=== PATIENT | female | born 1970 | race Caucasian/White ===

== ENCOUNTER 2025-06-01 19:34 | Emergency (ER) | payer OTHER, SELFPAY ==
--- NOTE | ~2025-06-01 | XR_ITS ---
CLINICAL HISTORY: CP 2 view chest x-ray Comparison: None provided Findings: The lungs are clear. Normal size heart. No acute fracture. IMPRESSION: 1. No acute findings. This document has been electronically signed by: Misael Rollins MD on 06/01/2025 20:16:30
--- NOTE | 2025-06-01 19:38 | ED_ITS ---
HPI - General Adult General Chief complaint: Chest Pain Stated complaint: chest pain/left tingly Time Seen by Provider: 06/01/25 21:26 Source: patient Mode of arrival: ambulatory Limitations: no limitations History of Present Illness ED Provider: José Antonio HUDSON HPI narrative: The patient is a 55-year-old female presenting to the ED for evaluation of 2-3 days of facial paresthesias which began at the top of her forehead, described as a poking tingling sensation, which then also developed in her bilateral orbits, cheeks, lips, and the left side of her chin. The patient reports 6 days ago she began taking Augmentin for a UTI diagnosed by urinalysis through her PCP office. The patient reports urinary symptoms are improving. The patient denies associated headache, facial droop, lip or tongue swelling, dysphagia, stridor, urticaria, fever/chills, nausea, vomiting, abdominal pain, diarrhea, dizziness, or other focal neurological deficit. The patient reports today she experienced some intermittent episodes of ?discomfort? in her chest which occasionally feels similar to her facial paresthesias, denies overt chest pain. The patient denies associated pleurisy, hemoptysis, cough, shortness of breath, near-syncope, or syncope. The patient denies any recent sick contacts or trauma. The patient reports multiple medication allergies, including Levaquin, patient reports she was concerned she was experiencing another allergy to Augmentin. The patient also reports she has a history of anxiety, and has recently experienced increased stressors. Related Data Allergies Allergy/AdvReac Type Severity Reaction Status Date / Time aspirin Allergy Unknown Verified 06/01/25 19:44 diazepam (From Valium) Allergy Rash Verified 06/01/25 19:44 levofloxacin (From Levaquin) Allergy Rash Verified 06/01/25 19:44 morphine Allergy Unknown Verified 06/01/25 19:44 povidone-iodine (From Allergy Rash Verified 06/01/25 19:44 Betadine) pregabalin (From Lyrica) Allergy Rash Verified 06/01/25 19:44 Review of Systems 2 Review of Systems: Yes all other systems are reviewed and are negative PMFSH Social History Social History Smoked in Last 30 Days: No Use of substances other than those prescribed or required for medical reasons: No Advance Directives: No Advance Directives Information Provided: No Do you have a plan to hurt others: No Plan Physical Exam ED Vital Signs: Vital Signs - 24 hr 06/01/25 19:43 06/01/25 21:33 Temperature 97.5 F Pulse Rate 102 H 98 Respiratory Rate 16 12 Blood Pressure 144/88 H 137/81 Pulse Oximetry 97 97 Oxygen Delivery Method Room Air Room Air BMI result Body Mass Index 37.4 CONSTITUTIONAL: The patient appears non-toxic, well nourished and in no acute distress. Vital signs as documented. HEAD: Atraumatic, normocephalic. EYES: EOMs intact, pupils equal, round, and reactive to light, conjunctiva clear, no exudate. ENT: Nares patent, no discharge. Airway patent, no audible stridor, visible mucosa is pink and moist without noted lesions. NECK: Trachea is midline, no obvious masses or gross abnormalities. CHEST: Symmetric movement, normal appearance. LUNGS: LS present and CTAB, no w/r/r. Non-labored work of breathing. CARDIAC: Regular Rhythm, S1/S2 appreciated, no murmurs, rubs or gallops. ABDOMEN: Abdomen soft and non-tender x4 quadrants, no palpable masses or organomegaly. : Deferred. EXTREMITIES: Normal tone, moves all extremities spontaneously without reported pain. No obvious acute injury or deformity noted. NEURO: Alert and oriented x3, CN II-XII intact. Cerebellar Functioning intact. No sensory or motor deficits. Strength 5/5 x4. Speech clear and appropriate. Ambulates with a steady gait. PSYCH: normal affect, appropriate eye contact, fluid speech, with appropriate response to questioning. No reported suicidality or homicidality. SKIN: Warm, dry, color appropriate, normal turgor. No rashes noted. Course Course Course Narrative: This is an RME: Additional HPI, ROS, PE not included below will be deferred to primary provider. RME assessment and note performed by: Loraine Palomo PA-C This is a [id number]-female, with a hx of asthma, on Zepbound for weight loss, who presents to the ER with a complaint of facial tingling x 2 days. She states initially it started on the top of her head, has since progressed to the left side of her face and right side of her face. Also endorsing intermittent chest pain. Reports that she has no active CP right now. On Augmentin for UTI. No recent surgeries, travels, surgeries, or hospitalizations. Neuros intact Plan: Labs, UA, EKG, chest x-ray, further ER evaluation needed. Medical Decision Making Medical Decision Making [facility] Narrative: 9:53 PM 06/01/2025 (Celso HUDSON): The patient is a 55-year-old female presenting to the ED for evaluation of 2-3 days of facial paresthesias which began at the top of her forehead, described as a poking tingling sensation, which then also developed in her bilateral orbits, cheeks, lips, and the left side of her chin. The patient reports 6 days ago she began taking Augmentin for a UTI diagnosed by urinalysis through her PCP office. The patient reports urinary symptoms are improving. The patient denies associated headache, facial droop, lip or tongue swelling, dysphagia, stridor, urticaria, fever/chills, nausea, vomiting, abdominal pain, diarrhea, dizziness, or other focal neurological deficit. The patient reports today she experienced some intermittent episodes of ?discomfort? in her chest which occasionally feels similar to her facial paresthesias, denies overt chest pain. The patient denies associated pleurisy, hemoptysis, cough, shortness of breath, near-syncope, or syncope. The patient denies any recent sick contacts or trauma. The patient reports multiple medication allergies, including Levaquin, patient reports she was concerned she was experiencing another allergy to Augmentin. The patient also reports she has a history of anxiety, and has recently experienced increased stressors. In the ED the patient is well-appearing, in no acute distress, neuro exam is benign, no unilateral facial numbness is noted during neuro exam. The patient's laboratory evaluation demonstrates no leukocytosis, anemia, electrolyte abnormality, or ARIEL. The patient's LFTs are unremarkable, troponin is negative, EKG is nonischemic. Chest x-ray shows no acute cardiopulmonary process. The patient has no evidence of acute process requiring admission or observation, patient will be discharged with instructions to finish Augmentin, monitor for worsening symptoms, and follow up with PCP for re- evaluation. Both patient and patient's state feeling reassured, and a comfortable with plan for discharge with outpatient follow up. Admission/Observation Consideration of admission/observation: Escalation of care including admission/observation considered Lab Data [facility] Lab Attestation statement: I reviewed the patient's lab results. 06/01/25 19:54 06/01/25 19:54 Labs: Lab Results 06/01/25 Range/Units 19:54 WBC 8.0 (4.8-10.8) X10*3/uL RBC 4.63 (4.20-5.50) X10*6/uL Hgb 14.6 (12.0-16.0) g/dl Hct 42.6 (37.0-47.0) % MCV 92.0 (80.0-98.0) fL MCH 31.5 (27.0-33.0) pg MCHC 34.3 (31.0-35.0) g/dl RDW 12.2 (11.0-16.0) % Plt Count 330 (160-400) X10*3/uL MPV 9.5 (9.4-12.3) fL Immature Gran % (Auto) 0.3 (0.0-0.4) % Neut % (Auto) 41.6 L (45-73) % Lymph % (Auto) 48.3 H (20-40) % [place] % (Auto) 8.0 (2-11) % Eos % (Auto) 1.3 (0-4) % Baso % (Auto) 0.5 (0-2) % Lymph # (Auto) 3.9 (1.2-4.9) X10*3/uL [place] # (Auto) 0.6 (0.1-1.2) X10*3/uL Eos # (Auto) 0.1 (0.0-0.4) X10*3/uL Baso # (Auto) 0.0 (0.0-0.2) X10*3/uL Abs Immat Gran (auto) 0.02 (0.00-0.03) X10*3/uL Absolute Neuts (auto) 3.3 (2.0-8.3) x10*3/uL Absolute Nucleated RBC 0.000 (0.0-0.012) X10*3/uL Nucleated RBC % (auto) 0.0 (0.0-0.2) /100WBC Sodium 144 (135-145) mmol/L Potassium 4.4 (3.3-5.1) mmol/L Chloride 108 (96-108) mmol/L Carbon Dioxide 26 (22-29) mmol/L Anion Gap 14 (12-20) BUN 21 H (9-16) mg/dL Creatinine 1.09 (0.5-1.4) mg/dL Estim Creat Clear Calc 60.9 Estimated GFR 53 Random Glucose 97 (60-115) mg/dL Calcium 9.4 (8.4-10.2) mg/dL Magnesium 2.1 (1.6-2.6) mg/dL Total Bilirubin 0.3 (0.0-1.0) mg/dL Direct Bilirubin 0.1 (0.0-0.5) mg/dL AST 24 (5-31) U/L ALT 38 H (0-31) U/L Alkaline Phosphatase 50 (39-117) U/L Troponin I High Sens < 2.7 (<3.5-17.0) ng/L Total Protein 7.2 (6.5-8.0) g/dL Albumin 4.5 (3.5-5.0) g/dL Independent Interpretation I performed an independent interpretation of an: EKG (EKG shows sinus rhythm with a rate of 97, no evidence of acute ischemia, no ST elevation, no ectopy. QTC 436. There are no old for comparison.) Radiology Impression Discussion of test interpretation with radiology: I have reviewed the radiologist's reading. Radiologist Impression: 2 view chest x-ray Comparison: None provided Findings: The lungs are clear. Normal size heart. No acute fracture. IMPRESSION: 1. No acute findings. This document has been electronically signed by: Misael Rollins MD on 06/01/2025 20:16:30 External Record Review External record reviewed: Outpatient record Discharge Plan Discharge Clinical Impression: Atypical chest pain, Facial paresthesia Patient Disposition: Home, Self-Care Additional Instructions: Thank you for choosing [facility]'s Emergency Department for your care today. The exact cause of your facial paresthesias and intermittent chest pain over the past few days is not entirely clear, however thankfully your laboratory evaluation, EKG, chest x-ray, and exam today are all reassuring. There is currently no evidence of an acute neurologic, cardiac, metabolic, infectious, pulmonary, or other dangerous cause for your symptoms. At this time there is no indication for admission to the hospital or continued ED observation, and it is safe to discharge you home. Your symptoms may be related to your current antibiotic regimen with Augmentin, however do not constitute a true anaphylactic/allergic reaction and does not require Benadryl, steroids, or epinephrine. Your symptoms could also be related to your Zepbound injections, or related to your self-reported increased stress levels. Please stay well hydrated and get plenty of rest. At this time it is recommended you finish your last day of Augmentin to complete treatment of your urinary tract infection. Please follow up with your primary care physician by calling Wednesday to schedule an appointment for re-evaluation, additional investigation into, and management of your symptoms, and continued preventative care. If you do not have a primary care physician, please call the [facility] at [phone] to establish a new primary care physician. While waiting to establish your new primary care physician, you can call our [facility] at [phone] for non-emergency needs. Please return to the emergency department if you develop a severe or sudden change in your symptoms, a fever over 100.4 that does not improve with Tylenol or Ibuprofen, recurrent vomiting, a severe headache, impaired movements/motor function of your face or extremities, or any other new or worsening symptoms or concerns. Referrals: Marie Friedman MD [Primary Care Provider, Internal Medicine] Clinical Impression: Facial paresthesia; Atypical chest pain Print Language: Iranian
[2025-06-01 19:43] VITALS: BP 144/88; PULSE 102; RESP 16; TEMP 36.4; O2SAT 97; BMI 37.4
--- NOTE | 2025-06-01 19:44 | ECG_ITS ---
Test Reason : CP Blood Pressure : */* mmHG Vent. Rate : 97 BPM Atrial Rate : 97 BPM P-R Int : 148 ms QRS Dur : 80 ms QT Int : 344 ms P-R-T Axes : 40 21 38 degrees QTcB Int : 436 ms Normal sinus rhythm Cannot rule out Anterior infarct , age undetermined Abnormal ECG No previous ECGs available Referred By: Loraine Palomo Electronically Signed By: Nikhil Carranza
[2025-06-01 19:58] LABS: MANUAL DIFF FLAG NO
[2025-06-01 20:00] LABS: Hematocrit 42.6 % (37.0-47.0); Hemoglobin 14.6 g/dl (12.0-16.0); Imm Gran Abs Auto 0.02 X10*3/uL (0.00-0.03); Imm Gran Pct Auto 0.3 % (0.0-0.4); Lymphocytes Absolute Auto 3.9 X10*3/uL (1.2-4.9); Mean Corpuscular HGB Conc 34.3 g/dl (31.0-35.0); Mean Corpuscular Hemoglobin 31.5 pg (27.0-33.0); Mean Corpuscular Volume 92.0 fL (80.0-98.0); NRBC Abs Auto 0.000 X10*3/uL (0.0-0.012); NRBC Pct Auto 0.0 /100WBC (0.0-0.2); Platelet Count 330 X10*3/uL (160-400); Red Blood Count 4.63 X10*6/uL (4.20-5.50); White Blood Count 8.0 X10*3/uL (4.8-10.8)
[2025-06-01 20:13] LABS: Alanine Aminotransferase 38 U/L (0-31); Albumin Level 4.5 g/dL (3.5-5.0); Alkaline Phosphatase 50 U/L (39-117); Anion Gap 14 (12-20); Aspartate Amino Transferase 24 U/L (5-31); Blood Urea Nitrogen 21 mg/dL (9-16); Calcium 9.4 mg/dL (8.4-10.2); Carbon Dioxide 26 mmol/L (22-29); Chloride 108 mmol/L (96-108); Creatinine Clr Calc Pharmacy 60.9; Estimated Glomerular Filt Rate 53; Magnesium 2.1 mg/dL (1.6-2.6); Potassium 4.4 mmol/L (3.3-5.1); Sodium 144 mmol/L (135-145); Total Protein 7.2 g/dL (6.5-8.0)
[2025-06-01 20:21] LABS: Troponin-I High Sensitivity < 2.7 ng/L (<3.5-17.0)
--- OUTSIDE RECORDS SUMMARY | 2025-06-01 21:06 | XMS_ITS | Clinical Summary ---
Author Organization [facility] Address [address] [place] [id number] Phone Care Team Providers Care Visiting Housekeeper Name Role Phone Marie Friedman MD Primary Care Provider Allergies Active Allergy Reactions Criticality Noted Date Comments Adhesive 09/28/2023 Aspirin 09/28/2023 Povidone-Iodine 09/28/2023 Levofloxacin 09/28/2023 Morphine 09/28/2023 Medications amoxicillin (AMOXIL) 250 MG capsule Take 250 mg by mouth 3 (three) times a day. Active albuterol 90 mcg/actuation inhaler Inhale 2 puffs into the lungs every 6 (six) hours as needed for wheezing. Active Active Problems Problem Noted Date Diagnosed Date Breast cyst 09/28/2023 Asthma 09/28/2023 Anxiety 09/28/2023 Social History Tobacco Use Types Packs/Day Years Used Date Smoking Tobacco: Never Assessed Education Answer Date Recorded Are you interested in more education? Not on vicenta e 09/28/2023 Are you concerned about learning? Not on file 09/28/2023 No 09/28/2023 No 09/28/2023 Digital Access Answer Date Recorded No 09/28/2023 No 09/28/2023 Reliable internet access at home? Not on file 09/28/2023 Device with a working camera? Not on file Comments Unknown Sex and Gender Information Value Date Recorded Sex Assigned at Not on file Legal Sex Female 10:59 AM EST Gender Identity Not on file Sexual Orientation Not on file Last Filed Vital Signs Vital Sign Reading Time Taken Comments Blood Pressure 134/87 09/28/2023 3:35 PM EST Pulse 97 09/28/2023 3:35 PM EST Temperature 36.3 C (97.4 F) 09/28/2023 3:35 PM EST Respiratory Rate 18 09/28/2023 3:35 PM EST Oxygen Saturation 97% 09/28/2023 3:35 PM EST Inhaled Oxygen Concentration - - Weight - - Height - - Body Mass Index - - Plan of Treatment Health Maintenance Due Date Last Done Comments LIPID PANEL 1972 DEPRESSION SCREENING 1984 SMOKING Hx and SMOKELESS TOBACCO SCREENING 1985 HEPATITIS C SCREENING 1990 HIV ONE-TIME SCREENING (18-65 YEARS) 1990 PNEUMOCOCCAL VACCINES (50+ years) (1 of 2 - PCV) 1991 PAP SMEAR 1993 MAMMOGRAM 2012 COLOGUARD 2017 COLONOSCOPY 2017 COLORECTAL CANCER SCREENING 2017 FIT TEST 2017 FOBT 2017 SIGMOIDOSCOPY 2017 VIRTUAL COLONOSCOPY 2017 RSV VACCINE (1 - Risk 50-74 years 1-dose series) 2022 ZOSTER VACCINES (1 of 2) 2022 INFLUENZA VACCINE (#1) 2025 09/01/2023, 2020 COVID-19 VACCINE ( season) 2025 06/24/2022, 07/01/2021, 11/24/2020, Additional history exists Adult Td,Tdap Booster 10/05/2032 10/05/2022 HEPATITIS A VACCINES Aged Out No long er eligible based on patient's age to complete this topic HIB VACCINES Aged Out No longer eligi ble based on patient's age to complete this topic MENINGOCOCCAL VACCINES (ACWY) Aged Out No longer eligible based on patient's age to complete this topic MENINGOCOCCAL VACCINES (B) Aged Out N o longer eligible based on patient's age to complete this topic Medical Devices Not on file [place] [address] [place] [address] [employer] Care Teams Visiting Housekeeper Relationship Specialty Start Date End Date Marie Friedman MD [address] [place] [id number] PCP - General Internal Medicine 09/28/23 Additional Source Comments The information contained in this document represents components of the legal health record. It is not the complete legal health record.[facility]
[2025-06-01 21:33] VITALS: BP 137/81; PULSE 98; RESP 12; O2SAT 97
[2025-06-01 22:10] VITALS: BP 123/77; PULSE 87; RESP 13; TEMP 36.6; O2SAT 97
== END 2025-06-01 22:15 | disposition home or self-care (01) ==
PROVIDERS: Physician Assistant Medical; Emergency Provider Emergency Medicine; PCP Internal Medicine
DX: R07.89 Other chest pain (principal); R20.2 Paresthesia of skin; Z79.899 Other long term (current) drug therapy
CPT/HCPCS: 36415; 71046; 80048; 80076; 83735; 84484; 85025; 93005; 99284

== ENCOUNTER → 2025-06-01 19:44 | Outpatient (BNV) | payer OTHER, SELFPAY | PROVIDERS: Emergency Provider Emergency Medicine; PCP Internal Medicine; Visit Provider Internal Medicine Cardiovascular Disease | DX: R94.31 Abnormal electrocardiogram [ECG] [EKG] (principal); R07.9 Chest pain, unspecified | CPT/HCPCS: 93010 ==

== ENCOUNTER → 2025-06-01 19:44 | Outpatient (BNV) | payer OTHER, SELFPAY | PROVIDERS: PCP Internal Medicine; Visit Provider Radiology Diagnostic Radiology | DX: R07.9 Chest pain, unspecified (principal) | CPT/HCPCS: 71046 ==